=== PATIENT | female | born 1950 | race Hispanic/Latino ===

== ENCOUNTER 2024-10-31 08:07 | Day surgery (SDC) | payer MEDICARE ==
[~2024-10-31] VITALS: Ht 160 cm; Wt 94.3 kg
[2024-10-31] VITALS (11 sets, daily range): BP systolic 104–154; BP diastolic 66–97; PULSE 61–68; RESP 14–18; TEMP 97.1–208.4
[2024-10-31] MEDS ORDERED: MELO-108 PO (11:02)
[2024-10-31] MEDS ORDERED: ERGO500093 PO (11:02)
[2024-10-31] MEDS ORDERED: AMLO-258 PO (11:02)
[2024-10-31] MEDS ORDERED: ATOR40TA69 PO (11:02)
[2024-10-31] MEDS ORDERED: LORA10TA7 PO (11:02)
[2024-10-31] MEDS ORDERED: GLIP1TAB6 PO (11:02)
[2024-10-31] MEDS ORDERED: DULA0.75 SQ (11:02)
[2024-10-31] MEDS ORDERED: METO-391 PO (11:02)
[2024-10-31] MEDS: 0.9%NACL 1000ML 1,000 ML IV ONE (11:05)
[2024-10-31] MEDS ORDERED: proPOFol 10 MG/ML 20ML VIAL IV ONE (12:00)
== END 2024-10-31 13:43 | disposition home or self-care (01) ==
LOC: ENDO 08:07 → DAH 08:07 → ENDO 13:43
PROVIDERS: ATTEND Internal Medicine Gastroenterology
DX: K59.04 Chronic idiopathic constipation (principal); D12.3 Benign neoplasm of transverse colon; D12.4 Benign neoplasm of descending colon; K62.1 Rectal polyp; E66.01 Morbid (severe) obesity due to excess calories; E11.9 Type 2 diabetes mellitus without complications; E78.00 Pure hypercholesterolemia, unspecified; H54.3 Unqualified visual loss, both eyes; I10 Essential (primary) hypertension; M19.90 Unspecified osteoarthritis, unspecified site; Z68.39 Body mass index [BMI] 39.0-39.9, adult; Z90.710 Acquired absence of both cervix and uterus; Z79.899 Other long term (current) drug therapy
CPT/HCPCS: 45380; 45385; 82948; J7030; J2704; A4620; A4215; A4223; A4222; A4221; A4663; A4606; J3490